=== PATIENT | female | born 1990 | race Caucasian/White ===

== ENCOUNTER 2016-03-06 17:52 | Emergency (ER) | payer OTHER ==
[2016-03-06] MEDS ORDERED: Ibuprofen TAB* 600 MG PO ONE (19:10)
--- NOTE | 2016-03-06 19:11 | UC ---
Throat Pain/Nasal Kale HPI - HPI Summary HPI Summary: sore throat, headache fever for 3 days - History of Current Complaint Stated Complaint: SORE THROAT,CHILLS Time Seen by Provider: 03/06/16 19:00 Hx Obtained From: Patient Hx Last Menstrual Period: 11/09/15 ?: No Onset/Duration: Sudden Onset, Lasting Days Severity: Moderate Pain Intensity: 6 Pain Scale Used: 0-10 Numeric Cough: Nonproductive Associated Signs & Symptoms: Positive: Dysphagia, Sinus Discomfort, Nasal Discharge, Fever Related History: Smoking - Epiglottits Risk Factors Epiglottis Risk Factors: Negative - Allergies/Home Medications Allergies/Adverse Reactions: Allergies Allergy/AdvReac Type Severity Reaction Status Date / Time Amoxicillin Allergy Intermediate Rash Verified 03/06/16 19:19 Penicillin V Allergy Intermediate Rash Verified 03/06/16 19:19 Sulfa Antibiotics Allergy Intermediate Rash Verified 03/06/16 19:19 PMH/Surg Hx/FS Hx/Imm Hx Previously Healthy: Yes - Surgical History Surgical History: Yes Surgery Procedure, Year, and Place: T & A. Csection november-. CHOLECYSTECTOMY--2016 - Family History Known Family History: Positive: None, Cardiac Disease - Social History Alcohol Use: Rare Substance Use Type: None Smoking Status (MU): Never Smoked Tobacco - Immunization History Most Recent Influenza Vaccination: september 2014 Review of Systems Constitutional: Fever, Chills, Fatigue Skin: Negative Eyes: Negative ENT: Sore Throat, Ear Ache, Nasal Discharge Respiratory: Cough Cardiovascular: Negative Gastrointestinal: Negative Genitourinary: Negative, Dysuria Motor: Negative Neurovascular: Negative Musculoskeletal: Negative Neurological: Negative Psychological: Negative All Other Systems Reviewed And Are Negative: Yes Physical Exam Triage Information Reviewed: Yes Appearance: Well-Nourished, Ill-Appearing, Pain Distress Vital Signs Reviewed: Yes Eye Exam: Normal Eyes: Positive: Conjunctiva Clear ENT: Positive: Hearing grossly normal, Pharyngeal erythema, Nasal congestion, TMs normal, Tonsillar swelling, Tonsillar exudate Dental Exam: Normal Neck exam: Normal Neck: Positive: Supple, Nontender, No Lymphadenopathy Respiratory Exam: Normal Respiratory: Positive: Chest non-tender, Lungs clear, Normal breath sounds Cardiovascular Exam: Normal Cardiovascular: Positive: RRR, No Murmur, Pulses Normal Abdominal Exam: Normal Abdomen Description: Positive: Nontender, No Organomegaly, Soft Bowel Sounds: Positive: Present Musculoskeletal Exam: Normal Musculoskeletal: Positive: Strength Intact, ROM Intact, No Edema Neurological Exam: Normal Neurological: Positive: Alert, Muscle Tone Normal Psychological Exam: Normal Psychological: Positive: Age Appropriate Behavior Skin Exam: Normal Throat Pain/Nasal Course/Dx - Course Course Of Treatment: hx obtained, exam performed, medication reviewed. rapid strep neg, ibuprofen given for pain and fever. med dispensed and prescribed. - Differential Dx/Diagnosis Differential Diagnosis/HQI/PQRI: Influenza, Laryngitis, Otitis Media, Pharyngitis, Sinusitis, Tonsillitis, URI Provider Diagnoses: URI Discharge - Discharge Plan Condition: Stable Disposition: HOME Prescriptions: predniSONE TAB* [Deltasone TAB*] 40 mg PO DAILY #10 tab Patient Education Materials: Upper Respiratory Infection (ED) Additional Instructions: Take the medication as prescribed. Increase your fluid intake and get plenty of rest. Ibuprofen or tylneol for pain and fever.
[2016-03-06 19:27] VITALS: BP 134/83
[2016-03-06] MEDS ORDERED: Acetaminoph/Cod 120/12 mg LIQ* 5 ML UDC PO ONE (19:35)
== END 2016-03-06 19:52 | disposition home or self-care (01) ==
LOC: UCCORT 17:52
DX: J06.9 Acute upper respiratory infection, unspecified (principal); Z88.0 Allergy status to penicillin; Z88.2 Allergy status to sulfonamides
CPT/HCPCS: 87651; 99212; A9270-GY; G0463

== ENCOUNTER 2017-07-30 19:59 | Emergency (ER) | payer OTHER ==
[2017-07-30 21:00] VITALS: BP 125/60
--- NOTE | 2017-07-30 21:08 | UC ---
Skin Complaint HPI - HPI Summary HPI Summary: Pt c/o gradual painful rash to left breast and left upper back. - History of Current Complaint Hx Obtained From: Patient Hx Last Menstrual Period: 07/24/17 ?: No Onset/Duration: Gradual Onset, Lasting Days, Still Present, Worse Since - onset Skin Exposure Onset/Duration: Days Ago Timing: Constant Onset Severity: Mild Current Severity: Severe Pain Intensity: 10 Location: Discrete - left breast and left upper back Character: Raised, Painful Aggravating Factor(s): Touch Alleviating Factor(s): Nothing Associated Signs & Symptoms: Positive: Rash <Cindy Hillman NP - Last Filed: 07/30/17 21:20> <Jeff Herrera - Last Filed: 07/30/17 22:01> - History of Current Complaint Chief Complaint: UCRash Time Seen by Provider: 07/30/17 21:01 Stated Complaint: RASH - POSS SHINGLES - Allergy/Home Medications Allergies/Adverse Reactions: Allergies Allergy/AdvReac Type Severity Reaction Status Date / Time amoxicillin Allergy Intermediate Rash Verified 07/30/17 21:03 Penicillins Allergy Intermediate Rash Verified 07/30/17 21:03 Sulfa (Sulfonamide Allergy Intermediate Rash Verified 07/30/17 21:03 Antibiotics) Home Medications: Home Medications Phentermine HCl 30 mg PO DAILY 07/30/17 [History Confirmed 07/30/17] Review of Systems Constitutional: Negative Skin: Rash Eyes: Negative ENT: Negative Respiratory: Negative Cardiovascular: Negative Gastrointestinal: Negative Genitourinary: Negative Motor: Negative Neurovascular: Negative Musculoskeletal: Negative Neurological: Negative Psychological: Negative Is Patient Immunocompromised?: No All Other Systems Reviewed And Are Negative: Yes <Cindy Hillman NP - Last Filed: 07/30/17 21:20> PMH/Surg Hx/FS Hx/Imm Hx Previously Healthy: Yes - Surgical History Surgical History: Yes Surgery Procedure, Year, and Place: T & A. Csection november-. CHOLECYSTECTOMY--2016 - Family History Known Family History: Positive: None, Cardiac Disease - Social History Occupation: Employed Full-time Lives: With Family Alcohol Use: Rare Substance Use Type: None Smoking Status (MU): Never Smoked Tobacco Have You Smoked in the Last Year: No - Immunization History Most Recent Influenza Vaccination: september 2014 <Cindy Hillman NP Last Filed: 07/30/17 21:20> Physical Exam Triage Information Reviewed: Yes Appearance: Well-Appearing Vital Signs: Initial Vital Signs Temp 98.1 F 07/30/17 20:53 Pulse 62 07/30/17 20:53 Resp 17 07/30/17 20:53 BP 125/60 07/30/17 20:53 Pulse Ox 100 07/30/17 20:53 Eye Exam: Normal ENT: Positive: Hearing grossly normal Dental Exam: Normal Neck exam: Normal Respiratory Exam: Normal Musculoskeletal Exam: Normal Neurological Exam: Normal Psychological Exam: Normal Skin Exam: Other - vessicular rash to left upper, outer brest/chest wall and left lateral upper back. <Cindy Hillman NP - Last Filed: 07/30/17 21:20> Vital Signs: Initial Vital Signs Temp 98.1 F 07/30/17 20:53 Pulse 62 07/30/17 20:53 Resp 17 07/30/17 20:53 BP 125/60 07/30/17 20:53 Pulse Ox 100 07/30/17 20:53 <Jeff Herrera - Last Filed: 07/30/17 22:01> Course/Dx - Differential Diagnoses - Skin Complaint Differential Diagnoses: Cellulitis, Varicella Zoster - Diagnoses Provider Diagnoses: shingles <Cindy Hillman NP Last Filed: 07/30/17 21:20> Discharge - Sign-Out/Discharge Documenting (check all that apply): Discharge/Admit/Transfer - Billing Disposition and Condition Condition: STABLE Disposition: Home <Cindy Hillman NP - Last Filed: 07/30/17 21:20> - Billing Disposition and Condition Condition: STABLE Disposition: Home <Jeff Herrera - Last Filed: 07/30/17 22:01> - Discharge Plan Condition: Stable Disposition: HOME Prescriptions: predniSONE TAB* [Deltasone 10 MG TAB*] 30 mg PO DAILY #12 tab traMADol TAB* [Ultram*] 50 mg PO Q12H PRN #10 tab MDD 2 PRN Reason: Pain ValACYclovir (*) [Valtrex 1 GM(*)] 1 gm PO Q8H #21 tab Patient Education Materials: Shingles (ED) Forms: *Work Release Referrals: Dana Lassiter [Primary Care Provider] - If Needed Additional Instructions: Per institutional requirements, I have reviewed the chart, however, I was not consulted specifically or made aware of this patient by the above midlevel provider. I did not personally evaluate, interact with , or disposition this patient.
[2017-07-30] MEDS ORDERED: Acyclovir* 200 MG CAP PO ONE (21:19)
== END 2017-07-30 21:29 | disposition home or self-care (01) ==
LOC: UCCORT 19:59
DX: B02.9 Zoster without complications (principal); Z88.0 Allergy status to penicillin; Z88.2 Allergy status to sulfonamides
CPT/HCPCS: 99212; A9270-GY; G0463

== ENCOUNTER 2018-07-10 18:32 | Emergency (ER) | payer OTHER ==
[2018-07-10 19:16] VITALS: BP 126/81
--- NOTE | 2018-07-10 20:10 | ED ---
Upper Extremity Pain - HPI Summary HPI Summary: 28 yr old female with the complaint of left shoulder pain. Onset over the past week, and worse with movement doing overhead activities. She has been doing a weight training program and she has pain with the weight lifting. Pain is moderate. No swelling, no redness. No other complaints. - History of Current Complaint Chief Complaint: UCUpperExtremity Stated Complaint: LEFT SHOULDER PAIN Time Seen by Provider: 07/10/18 19:18 Hx Last Menstrual Period: nexplanon - Allergies/Home Medications Allergies/Adverse Reactions: Allergies Allergy/AdvReac Type Severity Reaction Status Date / Time amoxicillin Allergy Intermediate Rash Verified 07/10/18 19:11 Penicillins Allergy Intermediate Rash Verified 07/10/18 19:11 Sulfa (Sulfonamide Allergy Intermediate Rash Verified 07/10/18 19:11 Antibiotics) Home Medications: Home Medications Etonogestrel [Nexplanon] 68 mg IMPLANT ONCE 07/10/18 [History Confirmed 07/10/18 ] Ibuprofen TAB* [Advil TAB*] 400 mg PO Q6H PRN 07/10/18 [History Confirmed ] Naproxen Sodium [Aleve] 440 mg PO Q6H PRN 07/10/18 [History Confirmed 07/10/18] metHOTREXate sodium [Trexall] 6 tab PO WEEKLY 07/10/18 [History Confirmed ] PMH/Surg Hx/FS Hx/Imm Hx - Surgical History Surgery Procedure, Year, and Place: T & A. Csection november--2014. CHOLECYSTECTOMY--2016 Infectious Disease History: No Infectious Disease History: Denies: Traveled Outside the [place] in Last 30 Days - Family History Known Family History: Positive: None, Cardiac Disease - Social History Occupation: Employed Full-time Alcohol Use: Rare Substance Use Type: Reports: None Smoking Status (MU): Never Smoked Tobacco Have You Smoked in the Last Year: No Review of Systems Constitutional: Negative Positive: Other - left shoulder pain All Other Systems Reviewed And Are Negative: Yes Physical Exam Triage Information Reviewed: Yes Vital Signs On Initial Exam: Initial Vitals Temp Pulse Resp BP Pulse Ox 98.8 F 74 20 126/81 100 07/10/18 19:13 07/10/18 19:13 07/10/18 19:13 07/10/18 19:13 07/10/18 19:13 Vital Signs Reviewed: Yes Appearance: Positive: Well-Appearing, No Pain Distress Skin: Positive: Warm, Skin Color Reflects Adequate Perfusion Head/Face: Positive: Normal Head/Face Inspection Eyes: Positive: EOMI, YUDELKA ENT: Positive: Normal ENT inspection Neck: Positive: Nontender Respiratory/Lung Sounds: Positive: Clear to Auscultation, Breath Sounds Present Cardiovascular: Positive: RRR. Negative: Murmur Abdomen Description: Positive: Nontender Musculoskeletal: Positive: Other - limited range of motion in overhead use forward flexion and abduction at the left shoulder. Neurological: Positive: Sensory/Motor Intact, Alert, Oriented to Person Place, Time, CN Intact II-III, Normal Gait, Speech Normal Psychiatric: Positive: Normal Diagnostics - Vital Signs Vital Signs Temp Pulse Resp BP Pulse Ox 07/10/18 19:13 98.8 F 74 20 126/81 100 - Laboratory Lab Statement: Any lab studies that have been ordered have been reviewed, and results considered in the medical decision making process. - Radiology left shoulder Radiology Interpretation Completed By: ED Physician - NAD Course/Dx - Course Course Of Treatment: 28 yr old with left shoulder bursitis, and possible rotator cuff injury. Plan DC home, motrin, fu with ortho. Recommend no weight training at this time. - Diagnoses Provider Diagnoses: Injury of left rotator cuff Discharge - Sign-Out/Discharge Documenting (check all that apply): Patient Departure All imaging exams completed and their final reports reviewed: No - Discharge Plan Condition: Good Disposition: HOME Patient Education Materials: Rotator Cuff Injury (ED) Referrals: Tere Fink NP [Primary Care Provider] - Desean Leal MD [Medical Doctor] - 2 Days - Billing Disposition and Condition Condition: GOOD Disposition: Home
--- NOTE | 2018-07-11 10:26 | UC ---
- Progress Note Progress Note: xray report left shoulder : IMPRESSION: NO ACUTE OSSEOUS INJURY. IF SYMPTOMS PERSIST, RECOMMEND REPEAT IMAGING. Course/Dx - Diagnoses Provider Diagnoses: Injury of left rotator cuff Discharge - Sign-Out/Discharge Documenting (check all that apply): Patient Departure All imaging exams completed and their final reports reviewed: Yes - Discharge Plan Condition: Good Disposition: HOME Patient Education Materials: Rotator Cuff Injury (ED) Referrals: Desean Leal MD [Medical Doctor] - 2 Days Tere Fink NP [Primary Care Provider] - - Billing Disposition and Condition Condition: GOOD Disposition: Home
== END 2018-07-10 20:15 | disposition home or self-care (01) ==
LOC: UCCORT 18:32
DX: S49.92XA Unspecified injury of left shoulder and upper arm, initial encounter (principal); M75.52 Bursitis of left shoulder; Z88.0 Allergy status to penicillin; Z88.2 Allergy status to sulfonamides; X50.0XXA Overexertion from strenuous movement or load, initial encounter; Y93.89 Activity, other specified; Y92.9 Unspecified place or not applicable
CPT/HCPCS: 99211; G0463

== ENCOUNTER 2019-04-01 09:58 | Emergency (ER) | payer BC ==
[2019-04-01 10:37] VITALS: BP 107/59
[2019-04-01] MEDS ORDERED: Ketorolac *IM* INJ* 60 MG/2 ML VIAL IM ONE (10:45)
[2019-04-01] MEDS ORDERED: Ondansetron ODT TAB* 4 MG PO ONE (10:45)
--- NOTE | 2019-04-01 10:45 | UC ---
Dizzy HPI HPI Summary: headache x 4 days pain is severe 10 out of 10 , no radiation nothing makes it better or worse, + nausea / vomiting, dizziness, no fever, no chills, + photophobia , no cold symptoms , no ear pain no sinus pain / pressure - History Of Current Complaint Chief Complaint: UCHeadache Stated Complaint: HEADACHE DIZZY CHILLS Time Seen by Provider: 04/01/19 10:29 Hx Obtained From: Patient Hx Last Menstrual Period: nexplanon ?: No Onset/Duration: Gradual Onset, Lasting Days - 4, Still Present Timing: Constant Severity Initially: Moderate Severity Currently: Severe Pain Intensity: 10 Character: Dizzy - Allergies/Home Medications Allergies/Adverse Reactions: Allergies Allergy/AdvReac Type Severity Reaction Status Date / Time amoxicillin Allergy Intermediate Rash Verified 04/01/19 10:36 Penicillins Allergy Intermediate Rash Verified 04/01/19 10:36 Sulfa (Sulfonamide Allergy Intermediate Rash Verified 04/01/19 10:36 Antibiotics) Home Medications: Home Medications Phentermine HCl [Adipex-P] 37.5 mg PO TID 04/01/19 [History Confirmed 04/01/19] PMH/Surg Hx/FS Hx/Imm Hx - Additional Past Medical History Additional PMH: obesity psoriatic arthritis - Surgical History Surgical History: Yes Surgery Procedure, Year, and Place: T & A. Csection november-. CHOLECYSTECTOMY--2015 - Family History Known Family History: Positive: None, Cardiac Disease - Social History Alcohol Use: Occasionally Substance Use Type: None Smoking Status (MU): Never Smoked Tobacco Have You Smoked in the Last Year: No - Immunization History Most Recent Influenza Vaccination: september 2014 Review of Systems All Other Systems Reviewed And Are Negative: Yes Constitutional: Positive: Fatigue. Negative: Fever, Chills Skin: Positive: Negative Eyes: Positive: Negative ENT: Positive: Sore Throat. Negative: Ear Ache, Nasal Discharge, Sinus Congestion, Sinus Pain/Tenderness Respiratory: Negative: Cough Cardiovascular: Positive: Negative Gastrointestinal: Positive: Negative Neurological/Mental Status: Positive: Headache Is Patient Immunocompromised?: No Physical Exam Triage Information Reviewed: Yes Appearance: Well-Appearing, No Pain Distress, Well-Nourished Vital Signs: Initial Vital Signs Temp 98.4 F 04/01/19 10:30 Pulse 73 04/01/19 10:30 Resp 16 04/01/19 10:30 BP 107/59 02/18/20 10:30 Pulse Ox 100 04/01/19 10:30 Vital Signs Reviewed: Yes Eye Exam: Normal Eyes: Positive: Conjunctiva Clear ENT Exam: Normal ENT: Positive: Normal ENT inspection, Hearing grossly normal, Pharynx normal, TMs normal. Negative: Pharyngeal erythema, Nasal congestion, Nasal drainage, Tonsillar swelling, Tonsillar exudate Neck: Positive: Supple, Nontender, No Lymphadenopathy Respiratory: Positive: Chest non-tender, Lungs clear, Normal breath sounds Cardiovascular: Positive: RRR, No Murmur, Pulses Normal Abdominal Exam: Normal Musculoskeletal Exam: Normal Musculoskeletal: Positive: Strength Intact, ROM Intact, No Edema Neurological: Positive: Alert Skin Exam: Normal UC Physical Exam Vital Signs On Initial Exam: Initial Vitals Temp Pulse Resp BP Pulse Ox 98.4 F 73 16 107/59 100 04/01/19 10:30 04/01/19 10:30 04/01/19 10:30 04/01/19 10:30 04/01/19 10:30 - Neurological Exam Neurological: Normal, Sensory/Motor Intact, Alert, Oriented to Person Place, Time, CN Intact II-III, Normal Gait, Facial Symmetry, Speech Normal Dizzy Course/Dx - Differential Dx/Diagnosis Provider Diagnosis: Vertigo, Headache Discharge ED - Sign-Out/Discharge Documenting (check all that apply): Patient Departure All imaging exams completed and their final reports reviewed: No Studies - Discharge Plan Condition: Stable Disposition: HOME Prescriptions: Meclizine TAB* [Antivert 12.5 TAB*] 25 mg PO TID PRN #15 tab PRN Reason: Dizziness SUMAtriptan TAB* [Imitrex TAB*] 100 mg PO SEE INSTRUCTIONS #10 tab Patient Education Materials: Acute Headache (ED), Vertigo (ED) Referrals: Tere Fink NP [Primary Care Provider] - 3 Days - Billing Disposition and Condition Condition: STABLE Disposition: Home
== END 2019-04-01 11:50 | disposition home or self-care (01) ==
LOC: UCCORT 09:58
DX: R51 Headache (principal); R42 Dizziness and giddiness; R11.2 Nausea with vomiting, unspecified; H53.149 Visual discomfort, unspecified; L40.50 Arthropathic psoriasis, unspecified; E66.01 Morbid (severe) obesity due to excess calories; R53.83 Other fatigue; J02.9 Acute pharyngitis, unspecified; Z88.0 Allergy status to penicillin; Z88.2 Allergy status to sulfonamides; Z79.899 Other long term (current) drug therapy
CPT/HCPCS: 99212; A9270-GY; G0463; J1885

== ENCOUNTER 2021-06-08 05:37 | Inpatient (IN) ==
[2021-06-08] MEDS ORDERED: Lactated Ringers 1000 ml BAG 1,000 ML IV SCH (06:00)
[2021-06-08] MEDS ORDERED: Buffered Lidocaine 1% SYRIN 1 ml INTRADERM ONE (06:00)
[2021-06-08] MEDS ORDERED: Clindamycin 900 MG/D5W BAG 900 MG/50 ML BAG IVPB ONE (06:06)
[2021-06-08] MEDS ORDERED: Heparin 5000 UNITS/ML 1 mL VIAL ONE (06:06)
[2021-06-08] MEDS ORDERED: Scopolamine 1 mg/72hr PATCH ONE (06:09)
[2021-06-08] MEDS ORDERED: DiMENhydriNATE IV 50 mg/ml 1 ml VIAL IV PUSH PRN ×2 (06:43→11:08)
[2021-06-08] MEDS ORDERED: Naloxone 0.4 mg VIAL 0.4 mg/ml 1 ml VIAL IV PRN (06:43)
[2021-06-08] MEDS ORDERED: Bupivacaine 0.5% 50 ML MDV VIAL ONE (06:49)
[2021-06-08] MEDS ORDERED: Dexamethasone IV 4 MG/ML VIAL 1 ml VIAL ONE (07:16)
[2021-06-08] MEDS ORDERED: Rocuronium 50 mg VIAL 10 mg/ml 5 ml VIAL (50 mg) ONE ×2 (07:16→08:19)
[2021-06-08] MEDS ORDERED: Propofol 10 MG/ML 20 ML BTL ONE ×2 (07:16→08:22)
[2021-06-08] MEDS ORDERED: Midazolam 2 mg/2 ml VIAL 1 mg/ml 2 ml VIAL (2 mg) ONE (07:16)
[2021-06-08] MEDS ORDERED: Lidocaine 2% PF 5 ML VIAL ONE (07:16)
[2021-06-08] MEDS ORDERED: Acetaminophen IV 1 GM/100ML 100 ML IV ONE (07:16)
[2021-06-08] MEDS ORDERED: Ondansetron 4 mg VIAL 2 MG/ML 2 ml VIAL ONE (07:16)
[2021-06-08] MEDS ORDERED: fentaNYL 100 mcg/2 ml 50 MCG/ML VIAL ONE ×5 (07:16→11:10)
[2021-06-08] MEDS ORDERED: Scopolamine 1 mg/72hr PATCH TRANSDERM SCH (08:00)
[2021-06-08] MEDS ORDERED: Sugammadex 500 MG/5 ML 5 ml VIAL IV PUSH ONE (09:21)
[2021-06-08] MEDS ORDERED: HYDROmorphone 0.5 MG/0.5 ML SYRINGE IV SLOW PU PRN (09:49)
[2021-06-08] MEDS ORDERED: HYDROcodone/ACET. 7.5/325 LIQ 15 ML UDC PO PRN (09:49)
[2021-06-08] MEDS: fentaNYL 100 mcg/2 ml 50 MCG/ML VIAL IV PRN ×9 (09:55→11:16)
[2021-06-08] MEDS ORDERED: DiMENhydriNATE IV 50 mg/ml 1 ml VIAL ONE (09:57)
[2021-06-08] MEDS: Ondansetron 4 mg VIAL 2 MG/ML 2 ml VIAL IV PRN (11:53)
[2021-06-08] MEDS: Lactated Ringers 1000 ml BAG 1,000 ML IV SCH ×2 (11:59→19:30)
[2021-06-08] MEDS: HYDROmorphone 1 MG/1 ML SYRINGE IV SLOW PU PRN ×3 (12:08→21:48)
[2021-06-08] MEDS: Heparin 5000 UNITS/ML 1 mL VIAL SUBCUT SCH ×2 (13:24→22:26)
[2021-06-08] MEDS: Acetaminophen IV 1 GM/100ML 100 ML IV PRN (16:37)
[2021-06-09] MEDS: Ondansetron 4 mg VIAL 2 MG/ML 2 ml VIAL IV PRN ×3 (00:19→14:59)
[2021-06-09] MEDS: Acetaminophen IV 1 GM/100ML 100 ML IV PRN ×2 (00:19→08:54)
[2021-06-09] MEDS: Lactated Ringers 1000 ml BAG 1,000 ML IV SCH (04:37)
[2021-06-09] MEDS: Heparin 5000 UNITS/ML 1 mL VIAL SUBCUT SCH ×2 (08:56→14:54)
[2021-06-09 11:28] VITALS: BP 106/60
[2021-06-09] MEDS ORDERED: D5W 1/2 NS KCl 20 meq 1000 ml 1,000 ML IV SCH (12:00)
== END 2021-06-09 16:25 | disposition home or self-care (01) | DRG 403 ==
LOC: AA 05:37 → SSU 11:45
PROVIDERS: ADMIT Surgery; ATTEND Surgery